=== PATIENT | female | born 1965 | race Hispanic/Latino ===

== ENCOUNTER → 2019-06-03 | Day surgery (SDC) | payer OTHER ==
--- NOTE | 2019-06-03 10:58 | MMO ---
LEFT BREAST STEREOTACTIC BIOPSY: Date: 06/03/2019 HISTORY: Left breast calcifications. COMPARISON: Outside mammography performed at [facility]. FINDINGS: Successful left breast stereotactic biopsy. A total of 24 10 gauge core biopsy samples were obtained. The last sample demonstrates significant calcifications. Post biopsy clip was placed and appears to be outside of the needle. Postprocedure mammogram demonstrates post biopsy changes. Biopsy clip is ap propriate located in the upper outer quadrant of the left breast. TECHNIQUE: Consent obtained to perform a left breast stereotactic biopsy. Left breast was prepped and draped in the sterile fashion. 1% lidocaine, buffered with sodium bicarbonate, was used for local anesthesia. U nder mammographic guidance, a 10 gauge biopsy needle was advanced such that the needle was adjacent t o the calcifications. Needle position was confirmed pre and post deployment. A total of 24 10 gauge c ore biopsy samples were obtained. Specimen radiograph was performed. Calcifications are present on th e third set of samples. Post biopsy mammogram performed. IMPRESSION: Successful left breast stereotactic biopsy. POS: OFF
== END ==
LOC: MAMMO 06:37
PROVIDERS: ATTEND Family Medicine
PROC: 0H95XZX Drainage of Chest Skin, External Approach, Diagnostic (ICD-10-PCS; principal; 2019-06-03)
DX: C50.412 Malignant neoplasm of upper-outer quadrant of left female breast (principal)
CPT/HCPCS: 19081; 76098; 88305; 88341; 88342